=== PATIENT | female | born 1960 | race Caucasian/White ===

== ENCOUNTER 2024-03-09 04:31 | Day surgery (SDC) | payer OTHER ==
[2024-03-08 11:28] VITALS: BMI 23.4
[2024-03-09] MEDS ORDERED: ACETAMINOPHEN 500 MG TABLET (FP) PO PRN (09:19)
[2024-03-09] MEDS: LIDOCAINE HCL 1% PRESERVATIVE FREE - 30ML VIAL IJ ONE ×2 (12:16)
[2024-03-09] MEDS: IOHEXOL 180 MG/1 ML ML IJ ONE ×2 (12:18)
[2024-03-09] MEDS: TRIAMCINOLONE ACET 40MG/1ML VIAL IM ONE ×2 (12:20)
[2024-03-09] MEDS: BUPIVACAINE HCL/PF 0.5% (5MG/ML) 10 ML VIAL IJ ONE ×3 (12:20)
[2024-03-09] MEDS ORDERED: BUPIVACAINE HCL/PF 0.5% (5MG/ML) 10 ML VIAL ONE (12:32)
[2024-03-09 14:34] VITALS: BP 143/76; PULSE 63; RESP 18; TEMP 97.8
== END 2024-03-09 12:50 | disposition home or self-care (01) ==
LOC: JASU-SURG 04:31
PROVIDERS: ATTEND Pain Medicine Pain Medicine
PROC: 3E0U3BZ Introduction of Anesthetic Agent into Joints, Percutaneous Approach (ICD-10-PCS; 2024-03-09)
PROC: 3E0U33Z Introduction of Anti-inflammatory into Joints, Percutaneous Approach (ICD-10-PCS; principal; 2024-03-09 12:30)
DX: M16.12 Unilateral primary osteoarthritis, left hip (principal)
CPT/HCPCS: 76000-TC-FY